=== PATIENT | female | born 1965 | race Caucasian/White ===

== ENCOUNTER 2016-12-07 11:31 | Day surgery (SDC) | payer OTHER ==
[~2016-12-07] VITALS: Ht 157.5 cm; Wt 77.4 kg
[2016-12-07 12:54] VITALS: Ht 157.5 cm; Wt 77.4 kg
[2016-12-07] MEDS ORDERED: [UNRECOGNIZED DRUG - REMARK] (13:07)
[2016-12-07 14:21] VITALS: BP 125/87; PULSE 62; RESP 18
--- NOTE | 2016-12-07 15:18 | OPPN ---
Date/Time of Note Date/Time of Note DATE: 12/07/16 TIME: 15:17 Operative Report Preoperative Diagnosis Screening Postoperative Diagnosis Internal hemorrhoids No colon neoplasm is identified Operation/Procedure Performed Colonoscopy Surgeon see signature line it assistant None Anesthesia: moderate sedation Estimated blood loss: none Transfusion Required none Specimen None Grafts/Implants none Complications none ALO ALCALA MD Dec 07, 2016 15:18
--- NOTE | 2016-12-07 15:18 | OPPN ---
Date/Time of Note Date/Time of Note DATE: 12/07/16 TIME: 15:17 Operative Report Preoperative Diagnosis Screening Postoperative Diagnosis Internal hemorrhoids No colon neoplasm is identified Operation/Procedure Performed Colonoscopy Surgeon see signature line medicine assistant None Anesthesia: moderate sedation Estimated blood loss: none Transfusion Required none Specimen None Grafts/Implants none Complications none ALO ALCALA MD Dec 07, 2016 15:18
--- NOTE | 2016-12-07 15:18 | OPPN ---
Date/Time of Note Date/Time of Note DATE: 12/07/16 TIME: 15:17 Operative Report Preoperative Diagnosis Screening Postoperative Diagnosis Internal hemorrhoids No colon neoplasm is identified Operation/Procedure Performed Colonoscopy Surgeon see signature line assistant operator None Anesthesia: moderate sedation Estimated blood loss: none Transfusion Required none Specimen None Grafts/Implants none Complications none ALO ALCALA MD Dec 07, 2016 15:18
[2016-12-07] MEDS ORDERED: MIDAZOLAM 1 MG/ML 2 ML INJ ONE ×2 (15:26)
[2016-12-07] MEDS ORDERED: FENTAnyl 50 MCG/ML VIAL ONE (15:26)
[2016-12-07 15:45] VITALS: BP 114/76
--- NOTE | 2016-12-08 05:35 | GILP ---
DATE OF PROCEDURE: NAME OF PROCEDURE: Colonoscopy. SURGEON: Alo Toussaint MD. PREOPERATIVE DIAGNOSIS: Screening colonoscopy. POSTOPERATIVE DIAGNOSES 1. Colonoscopy all the way to the cecum. 2. Internal hemorrhoids. 3. No colon neoplasm was identified. INDICATION FOR THE PROCEDURE: Ms. Shanna Pardo is a 51-year-old female patient who was scheduled f or screening colonoscopy. The procedure and possible complications were well explained to the patient. The patient understood and consented to the procedure. DESCRIPTION OF PROCEDURE: Under the influence of fentanyl and Versed, the colonoscope was carefully introduced in the rectum and under direct vision, it was advanced all the way to the cecum. FINDINGS: The patient had internal hemorrhoids. No colon neoplasm was identified. She tolerated the procedure very well and there was no complication from the procedure. At the end of the procedure, she was awake with stable vital signs and she was discharged home to the care of h er family. IMPRESSION: 1. Colonoscopy all the way to the cecum. 2. Internal hemorrhoids. 3. No colon neoplasm was identified. PLAN: Next screening colonoscopy in 10 years. Dictated By: ALO ELIZALDE/LOIS Conf#: [id number] DID#: [id number]
== END 2016-12-07 16:23 | disposition home or self-care (01) ==
LOC: GIL 11:31
PROVIDERS: ATTEND Internal Medicine Gastroenterology
DX: Z12.11 Encounter for screening for malignant neoplasm of colon (principal); K64.8 Other hemorrhoids; I10 Essential (primary) hypertension
CPT/HCPCS: 45378; J2250; J3010